=== PATIENT | female | born 1980 | race Caucasian/White ===

== ENCOUNTER 2018-11-23 18:56 | Emergency (ER) | payer BC ==
[~2018-11-23] VITALS: Ht 170.2 cm; Wt 81.7 kg
[2018-11-23 19:05] VITALS: BP 126/61
[2018-11-23] MEDS ORDERED: XANAX1 MG (19:09)
[2018-11-23] MEDS ORDERED: WELLBUTRIN SR150 MG (19:09)
[2018-11-23] MEDS ORDERED: WELLBUTRIN 75 M75 M1 (19:09)
[2018-11-23] MEDS ORDERED: XANAX1 MG PO (19:29)
[2018-11-23] MEDS ORDERED: WELLBUTRIN SR150 MG PO (19:32)
[2018-11-23] MEDS ORDERED: WELLBUTRIN 75 M75 M1 PO (19:32)
== END 2018-11-23 19:42 | disposition home or self-care (01) ==
LOC: M.ERS 18:56
DX: F41.1 Generalized anxiety disorder (principal); F32.9 Major depressive disorder, single episode, unspecified; F17.200 Nicotine dependence, unspecified, uncomplicated

== ENCOUNTER → 2019-07-31 | Outpatient (CLI) | payer BC ==
[~2019-07-31] MED LIST: WELLBUTRIN 75 M75 M1; WELLBUTRIN 75 M75 M1 PO; WELLBUTRIN SR150 MG; WELLBUTRIN SR150 MG PO; XANAX1 MG; XANAX1 MG PO
--- NOTE | ~2019-07-31 | EEG ---
[address] [address] EEG STUDY REPORT Name: MARTIR BURLESON Room: [facility]#: [id number] Admission: 07/31/19 Attend Phys: Fede Sanchez MD Discharge: Date of : 78 Report #: [id number] THIS REPORT FOR: //name// CC: Fede Barksdale DATE OF SERVICE: 07/31/2019 DICTATED BY: Dr. Torres This patient is being evaluated for the possibility of seizures. EEG is being done for the possibility of seizure. EEG was done by placing the electrode by standard 10-20 system of electrode placement. Both referential and sequential montages were used for recording. Background activity goes up to about 9-10 Hz and 30 microvolts. The patient became drowsy and that is associated with bilateral slowing. Photic stimulation was unremarkable. Throughout the record, no active epileptiform activity was noticed. IMPRESSION: This patient's electroencephalogram does not demonstrate any active epileptiform activity and was unremarkable. Thank you very much for this referral. By: [id number] Mederos MD /nt
--- NOTE | 2019-07-31 14:17 | 2DMMODE ---
[place] [address] 2 D/M-MODE ECHOCARDIOGRAM Name: MARTIR BURLESON [id number] Admission: 07/31/19 Attend Phys: Fede Sanchez, Discharge: Date of : 78 Date of Service: 07/31/19 1417 Report #: [id number] THIS REPORT FOR: //name// APPROVED REPORT Study performed: 07/31/2019 12:59:29 EXAM: Comprehensive 2D, Doppler, and color-flow Echocardiogram/ Bubble Study Patient Location: Out-Patient BSA: 1.94 HR: 60 bpm BP: 100/75 mmHg Other Information Study Quality: Good Indications CVA/TIA Dyspnea Echo Enhancing Agent Indication: Rule out Shunt Agent(s) / Amount(s) Used: Agitated Saline 10 cc 2D Dimensions IVSd: 9.77 (7-11mm) LVOT Diam: 20.30 (18-24mm) LVDd: 45.13 mm PWd: 9.63 (7-11mm) Ascending Ao: 25.94 (22-36mm) LVDs: 29.71 (25-40mm) Aortic Root: 26.57 mm Volumes Left Atrial Volume (Systole) LA ESV Index: 17.40 mL/m2 Aortic Valve AoV Peak Rafael.: 1.10 m/s AO Peak Gr.: 4.84 mmHg LVOT Max P.90 mmHg AO Mean Gr.: 2.32 mmHg LVOT Mean P.64 mmHg LVOT Max V: 0.99 m/s AO V2 VTI: 20.04 cm LVOT Mean V: 0.58 m/s SHAMIR (VTI): 3.01 cm2 LVOT V1 VTI: 18.61 [place] [address] 2 D/M-MODE ECHOCARDIOGRAM Name: MARTIR BURLESON Room: [facility]#: [id number] Admission: 07/31/19 Attend Phys: Fede Sanchez, Discharge: Date of : 78 Date of Service: 07/31/19 1417 Report #: [id number] E/A Ratio: 1.27 MV Decel. Time: 207.19 ms MV E Max Rafael.: 0.68 m/s MV PHT: 60.09 ms MVA (PHT): 3.66 cm2 TDI E/Lateral E': 3.78 E/Medial E': 4.86 Medial E' Rafael.: 0.14 m/s Lateral E' Rafael.: 0.18 m/s Pulmonary Valve PV Peak Rafael.: 0.92 m/s PV Peak Gr.: 3.36 mmHg Left Ventricle The left ventricle is normal size. There is normal LV segmental wall motion. There is normal left ventricular wall thickness. Left ventricular systolic function is normal. The left ventricular ejection fraction is within the normal range. LVEF is 55-60%. The left ventricular diastolic function is normal. Right Ventricle The right ventricle is normal size. The right ventricular systolic function is normal. Atria The left atrium size is normal. Injection of hand aggitated saline appeared to show the presence of a small amount of bubbles in the left ventricle suggesting a right to left shunt. Artifact in the left atrium made the location of the shunt difficult to determine. The right atrium size is normal. Aortic Valve The aortic valve is normal in structure. No aortic regurgitation is present. There is no aortic valvular stenosis. Mitral Valve The mitral valve is normal in structure. trace mitral regurgitation. No evidence of mitral valve stenosis. Tricuspid Valve The tricuspid valve is normal in structure. Trace tricuspid valve regurgitation noted. Pulmonic Valve The pulmonary valve is normal in structure. [place] [address] 2 D/M-MODE ECHOCARDIOGRAM Name: MARTIR BURLESON Room: [facility] TIANNA Harper#: [id number] Admission: 07/31/19 Attend Phys: Fede Sanchez, Discharge: Date of : 78 Date of Service: 07/31/19 1417 Report #: [id number] valvular regurgitation. Great Vessels The aortic root is normal in size. IVC is normal in size and collapses >50% with inspiration. Pericardium There is no pericardial effusion. <Conclusion> LVEF is 55-60%. Injection of hand aggitated saline appeared to show the presence of a small amount of bubbles in the left ventricle suggesting a right to left shunt. Artifact in the left atrium made the location of the shunt difficult to determine. <ELECTRONICALLY SIGNED> By: Jerry Larios MD, [facility] 07/31/19 141 16 16 Jerry Larios MD, FACC /INF
== END ==
LOC: M.CRD 07-25 13:20
DX: R40.4 Transient alteration of awareness (principal); R51 Headache; R29.818 Other symptoms and signs involving the nervous system; R63.5 Abnormal weight gain; R47.9 Unspecified speech disturbances; F41.9 Anxiety disorder, unspecified; F32.9 Major depressive disorder, single episode, unspecified

== ENCOUNTER → 2019-08-19 | Outpatient (CLI) | payer BC ==
[2019-08-19 10:27] LABS: APTT 27.7 Seconds (25.0-31.3); PROTIME 10.5 Seconds (9.20-11.50)
[2019-08-19 13:14] LABS: CSF GLUCOSE 48 mg/dl (40-70)
[2019-08-19 13:52] VITALS: BP 145/69
[2019-08-19 14:08] LABS: CSF CLARITY CLEAR; CSF COLOR COLORLESS; CSF WBC 1 /mm3 (0-10); VOLUME 9 ml
[2019-08-19 14:09] LABS: CSF RBC 0 /mm3
== END | disposition home or self-care (01) ==
LOC: M.LAB 09:00 → M.RAD 10:00
PROVIDERS: Psychiatry & Neurology Neurology
DX: G45.9 Transient cerebral ischemic attack, unspecified (principal); I69.911 Memory deficit following unspecified cerebrovascular disease; R51 Headache; F41.1 Generalized anxiety disorder; Z79.899 Other long term (current) drug therapy; Z98.890 Other specified postprocedural states